=== PATIENT | male | born 1960 | race Caucasian/White ===

== ENCOUNTER 2016-10-22 21:13 | Observation (INO) | payer OTHER ==
[~2016-10-22] VITALS: Ht 185.4 cm; Wt 96.2 kg
[~2016-10-22 21:13] MED LIST: NO HOME MEDS
[2016-10-22 21:50] LABS: HEMATOCRIT 44.2 % (38.0-50.0); MCH 30.9 PG (29.0-34.0); MCHC 34.4 G/DL (30.0-36.0); MCV 89.8 FL (86-99); PLATELET COUNT 231 K/uL (156-360); RBC DIS.WIDTH-CV 13.2 % (11.8-14.6); RBC DIS.WIDTH-SD 43.2 % (39-53); RED BLOOD COUNT 4.92 M/uL (4.00-5.50); WHITE BLOOD COUNT 7.3 K/uL (4.1-10.2)
[2016-10-22 21:58] LABS: CHLORIDE 107 mEq/L (99-109); POTASSIUM 3.7 mEq/L (3.7-5.4); SODIUM 139 mEq/L (136-147)
[2016-10-22 22:00] LABS: GLUCOSE 100 mg/dL (70-99)
[2016-10-22 22:02] LABS: ANION GAP 13 MEQ/L (2-14); TOTAL BILIRUBIN 0.5 mg/dL (0.0-1.0)
[2016-10-22 22:03] LABS: SERUM ETHYL ALCOHOL 29 mg/dL
[2016-10-22 22:04] LABS: ALKALINE PHOSPHATASE 48 IU/L (3-129); GFR ESTIMATE (CALCULATED) > 59 mL/min/
[2016-10-22 22:05] LABS: UREA NITROGEN (BUN) 17 mg/dL (9-23)
[2016-10-22 22:44] LABS: TROP-I INTERPRETATION NEGATIVE; TROPONIN-I < 0.01 ng/mL (0.0-0.30)
[2016-10-23] VITALS (8 sets, daily range): BP systolic 128–179; BP diastolic 87–108
[2016-10-23] MEDS ORDERED: PROAIR HFA8.5 GM IH (00:27)
[2016-10-23] MEDS ORDERED: SYMBICORT60 INHALAT IH (00:27)
[2016-10-23 06:34] LABS: BASOPHIL COUNT 0.1 K/uL (0-0.1); EOSINOPHIL (%) 2.5 % (0-5); EOSINOPHIL COUNT 0.1 K/uL (0-0.3); HEMATOCRIT 45.4 % (38.0-50.0); IMMATURE GRANULOCYTE (%) 0.2 % (0.0-0.7); INSTRUMENT ABS NEUTROPHIL CT 3.3 K/uL; LYMPHOCYTE COUNT 1.6 K/uL (1.0-2.8); MCH 30.7 PG (29.0-34.0); MCHC 33.9 G/DL (30.0-36.0); MCV 90.6 FL (86-99); MEAN PLAT.VOLUME 9.7 uM^3 (9.0-12.4); MONOCYTE (%) 7.4 % (3-12); MONOCYTE COUNT 0.4 K/uL (0-0.8); NEUTROPHIL (%) 60.5 % (45-76); NEUTROPHIL COUNT 3.3 K/uL (1.8-6.4); PLATELET COUNT 208 K/uL (156-360); RBC DIS.WIDTH-CV 13.2 % (11.8-14.6); RBC DIS.WIDTH-SD 43.9 % (39-53); RED BLOOD COUNT 5.01 M/uL (4.00-5.50); WHITE BLOOD COUNT 5.5 K/uL (4.1-10.2)
[2016-10-23 06:43] LABS: CHLORIDE 107 mEq/L (99-109); SODIUM 142 mEq/L (136-147)
[2016-10-23 06:46] LABS: GLUCOSE 103 mg/dL (70-99)
[2016-10-23 06:47] LABS: ANION GAP 9 MEQ/L (2-14); TOTAL BILIRUBIN 0.5 mg/dL (0.0-1.0)
[2016-10-23 06:49] LABS: ALKALINE PHOSPHATASE 48 IU/L (3-129); GFR ESTIMATE (CALCULATED) > 59 mL/min/
[2016-10-23 06:50] LABS: UREA NITROGEN (BUN) 14 mg/dL (9-23)
[2016-10-23 06:51] LABS: DIRECT BILIRUBIN 0.2 mg/dL (0.0-0.3)
[2016-10-23 07:01] LABS: POTASSIUM 4.6 mEq/L (3.7-5.4)
[2016-10-23 10:07] LABS: TROP-I INTERPRETATION NEGATIVE; TROPONIN-I < 0.01 ng/mL (0.0-0.30)
[2016-10-23 17:35] LABS: TROP-I INTERPRETATION NEGATIVE; TROPONIN-I < 0.01 ng/mL (0.0-0.30)
[2016-10-23 18:06] LABS: POINT-OF-CARE METER ID UU13113831
[2016-10-24 03:52] VITALS: BP 132/85
[2016-10-24 07:18] LABS: Estimated Average Glucose 105 mg/dL (70-123); HEMOGLOBIN A1c (GLYCOHEMOGLOB) 5.3 % HGB (Below 5.7)
[2016-10-24 07:27] VITALS: BP 136/89
[2016-10-24 07:46] LABS: POINT-OF-CARE METER ID UU13113831
[2016-10-24 08:58] LABS: HDL CHOLESTEROL 45 MG/DL (Desirable>=40); LDL CHOLESTEROL 106 mg/dL (Desirable<100); NON-HDL CHOLESTEROL 145 mg/dL (Desirable<160); TOTAL CHOLESTEROL 190 mg/dL (Desirable<200); TRIGLYCERIDES 194 MG/DL (Normal: <150)
[2016-10-24 11:14] VITALS: BP 136/94
[2016-10-24] MEDS ORDERED: HYDROCHLOROTH12.5 M3 PO (12:13)
[2016-10-24] MEDS ORDERED: AMLODIPINE BESYL5 MG PO (12:13)
== END 2016-10-24 13:26 | disposition home or self-care (01) ==
LOC: EME 21:13 → EDOF 10-23 04:35 → 5WEST 10-23 04:35
PROVIDERS: Internal Medicine; Physician Assistant; Student in an Organized Health Care Education/Training Program
DX: R55 Syncope and collapse (principal); G47.33 Obstructive sleep apnea (adult) (pediatric); J45.909 Unspecified asthma, uncomplicated; I10 Essential (primary) hypertension; Z91.14 Patient's other noncompliance with medication regimen
CPT/HCPCS: 70450; 71020; 80048; 80053; 80061; 80076; 82550; 82948; 83036; 84484; 85025; 85027; 93005; 93306; 93880; 94640; 94640 76; 94660; 95819; 99202; 99281; 99285; G0378; G0480; J1644